=== PATIENT | female | born 1945 | race Hispanic/Latino ===

== ENCOUNTER 2020-05-30 12:42 | Observation (INO) | payer MEDICARE ==
[~2020-05-30] VITALS: Ht 162.6 cm; Wt 86.2 kg
[2020-05-30] MEDS ORDERED: SODIUM CHLORIDE 0.9% 1000ML 1,000 ML IV STA (13:41)
[2020-05-30] MEDS ORDERED: ONDANSETRON HCL INJ 2MG/ML 2ML 2 MG/ML VIAL IV STA (13:41)
[2020-05-30] MEDS ORDERED: HYDRALAZINE HCL 20 MG/ML VIAL IV STA (13:45)
[2020-05-30 13:56] LABS: BASOPHILS % 0.2 % (0.0-1.0); EOSINOPHILS # (AUTO) 0.1 (0.0-0.4); EOSINOPHILS % 0.8 % (0.0-6.0); HEMATOCRIT 37.4 % (34.2-44.1); HEMOGLOBIN 12.6 g/dL (12.0-16.0); LYMPHOCYTES # (AUTO) 1.4 (1.0-3.2); LYMPHOCYTES % 21.8 % (18.0-39.1); MEAN CORPUSCULAR HEMOGLOBIN 27.5 pg (28-32); MEAN CORPUSCULAR HGB CONC 33.7 g/dL (31-35); MEAN CORPUSCULAR VOLUME 81.7 fL (81-99); MONOCYTES # (AUTO) 0.3 (0.2-0.8); MONOCYTES % 4.7 % (4.4-11.3); NEUTROPHILS # (AUTO) 4.7 (2.1-6.9); NEUTROPHILS % 72.2 % (38.7-80.0); PLATELET COUNT 270 x10e3/uL (140-360); RED BLOOD COUNT 4.58 x10e6/uL (3.6-5.1); RED CELL DISTRIBUTION WIDTH 13.6 % (11.7-14.4)
[2020-05-30 14:02] LABS: INR 0.93
[2020-05-30 14:03] LABS: PARTIAL THROMBOPLASTIN TIME 31.4 seconds (23.8-35.5)
[2020-05-30 14:09] LABS: CLARITY,URINE SL CLOUDY (CLEAR); COLOR,URINE YELLOW (YELLOW); KETONES,URINE NEGATIVE (NEGATIVE); LEUKOCYTE ESTERASE ,URINE TRACE (NEGATIVE); NITRITE,URINE NEGATIVE (NEGATIVE); PROTEIN,URINE DIPSTICK NEGATIVE (NEGATIVE); URINE UROBILINOGEN 0.2 mg/dL (0.2 - 1)
[2020-05-30 14:10] LABS: ALANINE AMINOTRANSFERASE 14 IU/L (0-55); ALKALINE PHOSPHATASE 80 IU/L (40-150); ANION GAP 16.7 mmol/L (8-16); BLOOD UREA NITROGEN 8 mg/dL (7-26); BUN/CREATININE RATIO 12 (6-25); CALCIUM 9.3 mg/dL (8.4-10.2); CARBON DIOXIDE 22 mmol/L (22-29); CHLORIDE 102 mmol/L (98-107); CREATINE KINASE 58 IU/L (29-168); CREATININE, SERUM 0.69 mg/dL (0.57-1.11); EST GLOMERULAR FILTRATION RATE > 60 ML/MIN (60-); GLUCOSE 142 mg/dL (74-118); MAGNESIUM 1.9 MG/DL (1.3-2.1); POTASSIUM 3.7 mmol/L (3.5-5.1); SODIUM 137 mmol/L (136-145)
[2020-05-30 14:22] LABS: BACTERIA,URINE MANY /HPF; RBC,URINE 0-5 /HPF (0-5); WBC,URINE (MAN) 0-5 /HPF (0-5)
[2020-05-30 14:23] LABS: EPITHELIAL CELLS,URINE FEW /LPF; TRANSITIONAL EPI CELLS,URINE RARE
[2020-05-30] MEDS ORDERED: PIPER-TAZ 3.375 GM 50 ML IV SCH (15:00)
[2020-05-30] MEDS ORDERED: VANCOMYCIN 1GM/NS 250 ML 250 ML IV ONE (15:00)
[2020-05-30] MEDS ORDERED: HYDROCODONE/APAP 5MG-325MG TAB PO PRN (15:15)
[2020-05-30] MEDS ORDERED: SODIUM CHLORIDE 0.9% 1000ML 1,000 ML IV SCH (15:15)
[2020-05-30] MEDS ORDERED: ONDANSETRON HCL INJ 2MG/ML 2ML 2 MG/ML VIAL IV PRN (15:15)
[2020-05-30] MEDS ORDERED: LOSARTAN POTAS100 MG PO (15:48)
[2020-05-30] MEDS ORDERED: LATANOPROST2.5 ML OU (15:48)
[2020-05-30] MEDS ORDERED: ALENDRONATE SOD70 MG (15:48)
[2020-05-30] MEDS ORDERED: PRAVASTATIN SOD10 MG PO (15:48)
[2020-05-30] MEDS ORDERED: FLUOCINOLONE AC20 ML EACH EAR (15:48)
[2020-05-30] MEDS ORDERED: OMEPRAZOLE40 MG PO (15:48)
[2020-05-30] MEDS ORDERED: AMLODIPINE BESY10 MG PO (15:48)
[2020-05-30] MEDS ORDERED: HYDRALAZINE HCL25 MG PO (15:48)
[2020-05-30] MEDS ORDERED: OXYBUTYNIN CHLO10 MG PO (15:48)
[2020-05-30] MEDS ORDERED: CICLOPIROX15 GM PO (15:48)
[2020-05-30] MEDS ORDERED: CLONIDINE HCL0.1 MG PO (15:48)
[2020-05-30] MEDS ORDERED: BACLOFEN10 MG PO (15:48)
[2020-05-30] MEDS ORDERED: LO-DOSE ASPIRIN81 MG PO (15:48)
[2020-05-30 16:18] VITALS: BP 142/44
[2020-05-30] MEDS ORDERED: LIDOCAINE HCL 2% JELLY 5 ML TUBE TOP PRN (16:30)
[2020-05-30] MEDS ORDERED: CICLOPIROX OLAMINE 077% CREAM 15 GM TUBE EXT SCH (16:30)
[2020-05-30 16:41] VITALS: BP 168/98
[2020-05-30] MEDS ORDERED: DEXTROSE 50% SYRINGE 50 ML IV PRN (17:00)
[2020-05-30] MEDS ORDERED: FLUOCINOLONE OT SCH (17:00)
[2020-05-30] MEDS: FLUOCINOLONE OT SCH (17:13)
[2020-05-30] MEDS: CLONIDINE HCL 0.1 MG TAB PO SCH (17:15)
[2020-05-30 20:00] VITALS: BP 136/49
[2020-05-30] MEDS: HYDRALAZINE HCL 25 MG TAB PO SCH (21:00)
[2020-05-30 21:04] VITALS: BP 136/49
[2020-05-30] MEDS: INSULIN REGULAR, HUMAN 100 UNIT/1 ML 3ML VIAL SQ SCH (21:52)
[2020-05-30] MEDS: BACLOFEN 10 MG TAB PO SCH (22:52)
[2020-05-30] MEDS: LATANOPROST(OPTH) 2.5 ML BTL OU SCH (22:53)
[2020-05-31] VITALS (8 sets, daily range): BP systolic 130–155; BP diastolic 40–63
[2020-05-31 02:01] LABS: CREATINE KINASE MB 0.6 ng/mL (0-5.0)
[2020-05-31 06:03] LABS: BASOPHILS % 0.7 % (0.0-1.0); EOSINOPHILS # (AUTO) 0.1 (0.0-0.4); EOSINOPHILS % 3.2 % (0.0-6.0); HEMATOCRIT 34.7 % (34.2-44.1); HEMOGLOBIN 11.4 g/dL (12.0-16.0); LYMPHOCYTES # (AUTO) 1.5 (1.0-3.2); LYMPHOCYTES % 34.4 % (18.0-39.1); MEAN CORPUSCULAR HEMOGLOBIN 27.3 pg (28-32); MEAN CORPUSCULAR HGB CONC 32.9 g/dL (31-35); MONOCYTES # (AUTO) 0.4 (0.2-0.8); MONOCYTES % 8.5 % (4.4-11.3); NEUTROPHILS # (AUTO) 2.3 (2.1-6.9); PLATELET COUNT 232 x10e3/uL (140-360); RED BLOOD COUNT 4.18 x10e6/uL (3.6-5.1); RED CELL DISTRIBUTION WIDTH 13.7 % (11.7-14.4)
[2020-05-31 06:41] LABS: ALANINE AMINOTRANSFERASE 12 IU/L (0-55); ALBUMIN 3.2 g/dL (3.5-5.0); ALKALINE PHOSPHATASE 65 IU/L (40-150); ANION GAP 12.7 mmol/L (8-16); BLOOD UREA NITROGEN 10 mg/dL (7-26); BUN/CREATININE RATIO 15 (6-25); CALCIUM 8.8 mg/dL (8.4-10.2); CARBON DIOXIDE 25 mmol/L (22-29); CHLORIDE 106 mmol/L (98-107); CREATININE, SERUM 0.67 mg/dL (0.57-1.11); EST GLOMERULAR FILTRATION RATE > 60 ML/MIN (60-); GLUCOSE 116 mg/dL (74-118); POTASSIUM 3.7 mmol/L (3.5-5.1); SODIUM 140 mmol/L (136-145)
[2020-05-31 07:05] LABS: CREATINE KINASE MB 0.5 ng/mL (0-5.0)
[2020-05-31] MEDS: INSULIN REGULAR, HUMAN 100 UNIT/1 ML 3ML VIAL SQ SCH ×4 (07:30→21:59)
[2020-05-31] MEDS ORDERED: NON-FORMULARY MEDICATION (Pravastatin Sodium 10 MG) PO SCH (09:00)
[2020-05-31] MEDS: FLUOCINOLONE OT SCH ×2 (10:02→17:02)
[2020-05-31] MEDS: HYDRALAZINE HCL 25 MG TAB PO SCH ×3 (10:03→23:52)
[2020-05-31] MEDS: CLONIDINE HCL 0.1 MG TAB PO SCH ×2 (10:03→17:03)
[2020-05-31] MEDS: ASPIRIN 81 MG ENTERIC COATED PO SCH (10:03)
[2020-05-31] MEDS: AMLODIPINE BESYLATE 10 MG TAB PO SCH (10:04)
[2020-05-31] MEDS: LIDOCAINE 4% PATCH TP SCH (10:04)
[2020-05-31] MEDS: LOSARTAN POTASSIUM 100 MG TAB PO SCH (10:04)
[2020-05-31] MEDS: OXYBUTYNIN CHLORIDE XL 5 MG TAB PO SCH (10:04)
[2020-05-31] MEDS: PRAVASTATIN 20 MG TAB PO SCH (10:04)
[2020-05-31] MEDS: PANTOPRAZOLE SOD 40 MG TABEC PO SCH (10:04)
[2020-05-31] MEDS ORDERED: CEFTRIAXONE SOD 1 GM/50 ML BAG IV SCH (14:30)
[2020-05-31] MEDS: CEFTRIAXONE SOD 1 GM in SODIUM CHLORIDE 0.9% 50ML 50 ML IV SCH (15:47)
[2020-05-31] MEDS: ENOXAPARIN 30 MG/0.3 ML SYR SC SCH (17:03)
[2020-05-31] MEDS: BACLOFEN 10 MG TAB PO SCH (22:45)
[2020-05-31] MEDS: LATANOPROST(OPTH) 2.5 ML BTL OU SCH (22:45)
[2020-06-01] VITALS (7 sets, daily range): BP systolic 134–175; BP diastolic 48–69
[2020-06-01] MEDS: INSULIN REGULAR, HUMAN 100 UNIT/1 ML 3ML VIAL SQ SCH ×3 (07:30→16:30)
[2020-06-01] MEDS: LIDOCAINE 4% PATCH TP SCH (10:13)
[2020-06-01] MEDS: PANTOPRAZOLE SOD 40 MG TABEC PO SCH (10:16)
[2020-06-01] MEDS: FLUOCINOLONE OT SCH ×2 (10:16→16:40)
[2020-06-01] MEDS: OXYBUTYNIN CHLORIDE XL 5 MG TAB PO SCH (10:16)
[2020-06-01] MEDS: ASPIRIN 81 MG ENTERIC COATED PO SCH (10:16)
[2020-06-01] MEDS: PRAVASTATIN 20 MG TAB PO SCH (10:16)
[2020-06-01] MEDS: CLONIDINE HCL 0.1 MG TAB PO SCH (10:23)
[2020-06-01] MEDS: HYDRALAZINE HCL 25 MG TAB PO SCH (10:23)
[2020-06-01] MEDS: AMLODIPINE BESYLATE 10 MG TAB PO SCH (10:24)
[2020-06-01] MEDS: LOSARTAN POTASSIUM 100 MG TAB PO SCH (10:24)
[2020-06-01] MEDS: CEFTRIAXONE SOD 1 GM in SODIUM CHLORIDE 0.9% 50ML 50 ML IV SCH (14:08)
[2020-06-01] MEDS ORDERED: HYDRALAZINE HCL 25 MG TAB PO SCH (15:00)
[2020-06-01] MEDS ORDERED: HYDRALAZINE HCL25 MG PO ×2 (15:04→21:07)
[2020-06-01] MEDS ORDERED: CIPRO250 MG PO ×2 (15:04→21:07)
[2020-06-01] MEDS ORDERED: CLONIDINE HCL0.1 MG PO ×2 (15:04→21:07)
[2020-06-01] MEDS ORDERED: CLONIDINE HCL 0.1 MG TAB PO SCH (15:15)
[2020-06-01] MEDS: ENOXAPARIN 30 MG/0.3 ML SYR SC SCH (16:31)
== END 2020-06-01 17:50 | disposition home or self-care (01) ==
LOC: ER 12:50 → ERHOLD 15:10 → MED/SURG3 16:15
PROVIDERS: ADMIT Internal Medicine; ATTEND Internal Medicine
DX: N39.0 Urinary tract infection, site not specified (principal); I10 Essential (primary) hypertension; B96.20 Unspecified Escherichia coli [E. coli] as the cause of diseases classified elsewhere; E78.00 Pure hypercholesterolemia, unspecified; N32.81 Overactive bladder; K21.9 Gastro-esophageal reflux disease without esophagitis; G89.29 Other chronic pain; Z20.822 Contact with and (suspected) exposure to COVID-19; K29.70 Gastritis, unspecified, without bleeding
CPT/HCPCS: 36415 ×3; 70450; 70551; 71045; 80053 ×2; 81001; 82550 ×2; 82553 ×2; 82948 ×3; 83735; 83880; 84484 ×2; 85025 ×2; 85610; 85730; 87086; 87186; 93005; 93306; 93880; 97116 ×2; 97162; 97530 ×2; 99251; 99284; G0378 ×3; J0360; J0696 ×2; J1650; J1817; J2001; J2405; J7030; S0164 ×2; U0002